=== PATIENT | male | born 1945 | race Caucasian/White ===

== ENCOUNTER → 2019-08-11 | Outpatient (CLI) | payer MEDICARE, BC ==
[~2019-08-11] MED LIST: MULTI VITAMINS1 TAB PO; SIMVASTATIN10 MG PO
== END ==
LOC: COL.LAB 08:00
DX: Z20.828 Contact with and (suspected) exposure to other viral communicable diseases (principal)

== ENCOUNTER 2019-08-17 05:20 | Day surgery (SDC) | payer MEDICARE, BC ==
[~2019-08-17] VITALS: Ht 175.3 cm; Wt 106.9 kg
[~2019-08-17 05:20] MED LIST changes: -MULTI VITAMINS1 TAB PO
[2019-08-17 06:03] VITALS: BP 154/68; PULSE 70; TEMP 98.1
[2019-08-17] MEDS ORDERED: MULTI VITAMINS1 TAB PO (06:10)
--- NOTE | 2019-08-17 06:12 | NUR ---
TO RM AT 0537- CALL LIGHT IN REACH AT BEDSIDE.
[2019-08-17 09:15] VITALS: BP 130/75; PULSE 72; TEMP 96.8
--- NOTE | 2019-08-17 09:15 | NUR ---
TO RM 8 PER CART FROM OR. ALERT ORIENTED X3, TALKING TO STAFF AND . INCISION STICHES CLEAN DRY INTACT COVERED WITH BACITRACIN OINTMENT. RECEIVED WATER, MUFFIN AND COFFEE.
[2019-08-17 09:30] VITALS: BP 111/73; PULSE 65
--- NOTE | 2019-08-17 09:30 | NUR ---
EATING MUFFIN AND TALKING WITH .
[2019-08-17 09:45] VITALS: BP 117/60; PULSE 68
--- NOTE | 2019-08-17 09:45 | NUR ---
AMBULATED TO BATHROOM WITH ASSIST. VOIDED AND AMBULATED BACK TO ROOM.
--- NOTE | 2019-08-17 10:00 | NUR ---
RECEIVED DISCHARGE INSTRUCTIONS AND VERBALIZED UNDERSTANDING WITH AT BEDSIDE. DISCONTINUED IV AND INT- CATHETER INTACT. PATIENT GETTING DRESSED.
--- NOTE | 2019-08-17 10:15 | NUR ---
DISCHARGED PER WC BY NURSING STAFF TO PRIVATE CAR IN CARE OF .
== END 2019-08-17 10:25 | disposition home or self-care (01) ==
LOC: SDCO 05:20
DX: C44.219 Basal cell carcinoma of skin of left ear and external auricular canal (principal); Z11.59 Encounter for screening for other viral diseases
CPT/HCPCS: J2704; J3010; J7120

== ENCOUNTER 2019-12-30 10:33 | Inpatient (IN) | payer MEDICARE, BC ==
[~2019-12-30] VITALS: Ht 175.4 cm; Wt 108.0 kg
[~2019-12-30 10:33] MED LIST changes: +MULTI VITAMINS1 TAB PO
[2020-02-02] VITALS (12 sets, daily range): BP systolic 113–157; BP diastolic 59–77; PULSE 63–108; TEMP 97–98.7
[2020-02-02] MEDS ORDERED: ASPIRIN E.C. 8181 MG PO (04:58)
[2020-02-02] MEDS ORDERED: OMEGA-3 1000 MG1 CAP PO (04:59)
--- NOTE | 2020-02-02 10:01 | NUR ---
PT TO ROOM 328 PER BED WITH REPORT FROM SAEID GODINEZ PACU @ 0900. PT IS A/O X3 LUNGS CTA, BOWEL SOUNDS PRESENT. DRESSING TO LEFT LEG CDI WITH BULKY DRESSING OVER INCISION. SCDS PLACED BILATERALLY. IV TO PUMP. PT DENIES PAIN OR NEEDS AT THIS TIME.
--- NOTE | 2020-02-02 13:26 | NUR ---
Initial visit; Patient thanked Economic Research Analyst for looking in on him, visiting and keeping him in Economic Research Analyst's prayers.
--- NOTE | 2020-02-02 16:20 | NUR ---
Certified Orthotic Fitter met with patient to discuss discharge plan. Patient lives in [place], [place] with his , Nicko (ph#[phone]) and sees Dr. Valle for primary care. Patient obtains his medications from [facility] with no difficulties. Patient has a CPAP and walker at home. Patient reports he is normally independent with ADLS and plans to return home upon discharge. Patient reports his , Nicko and son, Abdirizak are his DPOA-HC however SW did not locate copy in EMR. SW contacted patient's , Nicko and left a message. SW will continue to follow.
--- NOTE | 2020-02-02 16:48 | NUR ---
Senior Risk Analyst spoke with patient's , Nicko to review discharge plan. Nicko advised that she and patient are active people and she has no concerns about patient returning home at this time.
--- NOTE | 2020-02-02 22:00 | NUR ---
Pt. sitting up in bed at this time. Pt. is A&OX3, assessment complete. IV to rt. forearm, IV fluids infusing per orders. Dressing to lt. knee cdi. Pt. reports pain at a 5 on pain scale, gave pain meds per orders. Pt. denies further needs, call light within reach.
[2020-02-03 01:00] VITALS: BP 137/76; PULSE 104; TEMP 98.6
[2020-02-03 04:13] VITALS: BP 136/81; PULSE 94; TEMP 98.9
[2020-02-03 06:38] LABS: HEMOGLOBIN 13.8 g/dl (13.5-18.0)
[2020-02-03] MEDS ORDERED: ASPIRIN 32325 MG/TA1 PO (07:55)
[2020-02-03] MEDS ORDERED: CELEBREX 200MG200 MG PO (07:55)
[2020-02-03] MEDS ORDERED: NORCO 325 MG-7.1 TAB PO (07:55)
[2020-02-03] MEDS ORDERED: ULTRAM 50MG TAB50 MG PO (07:56)
[2020-02-03 09:44] VITALS: BP 127/78; PULSE 100; TEMP 98
--- NOTE | 2020-02-03 10:40 | NUR ---
PATIENT GETTING INTO THE SHOWER WITH OT. DC'D IV. DISCHARGE PENDING LATER THIS AFTERNOON.
[2020-02-03 12:06] VITALS: BP 143/73; PULSE 104; TEMP 98
--- NOTE | 2020-02-03 13:55 | NUR ---
PATIENT DISCHARGING HOME VIA WC TO PERSONAL VEHICLE WHERE IS WAITING. GAVE DISCHARGE INSTRUCTIONS, SCRIPTS SENT TO [facility], GAVE AIRSTRIP DRESSINGS, AND DISCUSSED F/U APTS. ANSWERED ALL QUESTIONS/CONCERNS. PATIENT GIVEN NORCO, TWO TABS BEFORE HOUR LONG DRIVE HOME. PATIENT IS DRESSED AND PACKED. PATIENT ESCORTED OUT.
== END 2020-02-03 14:00 | disposition home or self-care (01) | DRG 470 ==
LOC: JCC 02-02 05:13
PROVIDERS: Physician Assistant; ADMIT Orthopaedic Surgery
PROC: 0SRD0J9 Replacement of Left Knee Joint with Synthetic Substitute, Cemented, Open Approach (ICD-10-PCS; principal; 2020-02-02 07:30)
DX: M17.12 Unilateral primary osteoarthritis, left knee (principal); Z20.828 Contact with and (suspected) exposure to other viral communicable diseases
CPT/HCPCS: A4314; A9284; C1776; J0690; J1100; J1885; J2250; J2405; J2704; J2795; J3010; J7120; J7121

== ENCOUNTER 2021-04-22 23:27 | Observation (INO) | payer MEDICARE, BC ==
[~2021-04-22] VITALS: Ht 175.3 cm; Wt 109.1 kg
[~2021-04-22 23:27] MED LIST changes: +ASPIRIN 32325 MG/TA1 PO; +ASPIRIN E.C. 8181 MG PO; +CELEBREX 200MG200 MG PO; +NORCO 325 MG-7.1 TAB PO; +OMEGA-3 1000 MG1 CAP PO; +ULTRAM 50MG TAB50 MG PO
[2021-04-22 23:48] LABS: COLLECTION METHOD CLEAN CATCH
[2021-04-23] VITALS (12 sets, daily range): BP systolic 114–157; BP diastolic 59–88; PULSE 74–100; TEMP 97.8–99.4
[2021-04-23 00:06] LABS: PH 6 (5-8); SQUAMOUS EPITHELIAL None Seen /hpf (0-10); URINE APPEARANCE Hazy (CLEAR/HAZY); URINE BACTERIA None Seen /hpf (NONE SEEN); URINE BILIRUBIN Negative (NEGATIVE); URINE BLOOD 2+ (NEGATIVE); URINE COLOR Red (YELLOW); URINE GLUCOSE 2+ (NEGATIVE); URINE KETONE 1+ (NEGATIVE); URINE LEUKOCYTE ESTERASE Negative (NEGATIVE); URINE NITRATE Positive (NEGATIVE); URINE PROTEIN(semi-quant) 2+ (NEGATIVE); URINE RBC >50 /hpf (0-2); URINE UROBILINOGEN Negative (NEGATIVE)
[2021-04-23 00:20] LABS: BILIRUBIN,TOTAL 0.5 mg/dL (0.2-1.2); CALCIUM 8.8 mg/dL (8.4-10.2); CREATININE, serum 1.07 mg/dL (0.72-1.25); POTASSIUM 3.9 mmol/L (3.5-4.5); TOTAL PROTEIN 6.6 gm/dL (6.2-8.1)
[2021-04-23 00:27] LABS: INR 1.1 (0.8-3.0); PROTHROMBIN TIME 12.2 SECONDS (9.7-12.8)
[2021-04-23 00:43] LABS: BASO # 0.1 K/mm3 (0.0-0.2); BASO % 1.2 % (0.0-2.0); EOS # 0.2 K/mm3 (0.0-0.7); EOS % 2.6 % (0.0-4.0); GRAN # 5.1 K/mm3 (1.4-6.5); GRAN % 60.8 % (42.2-75.2); HEMATOCRIT 46.5 % (42.0-52.0); HEMOGLOBIN 15.8 g/dl (13.5-18.0); LYMPH # 2.2 K/mm3 (1.2-3.4); LYMPH % 25.7 % (20.0-51.0); MEAN CELL VOLUME 91 fl (80.0-100.0); MEAN CORPUSCULAR HEMOGLOBIN 31 pg (27-31); MEAN CORPUSCULAR HGB CONC 34 g/dl (33.0-37.0); MEAN PLATELET VOLUME 10.7 fl (7.4-10.4); MONO # 0.8 K/mm3 (0.1-0.6); MONO % 9.2 % (1.7-9.3); PLATELET COUNT 202 K/mm3 (130-400); RED BLOOD COUNT 5.11 M/mm3 (4.20-5.60); REDCELL DISTRIBUTION WIDTH-CV 12.7 % (11.5-14.5)
--- NOTE | 2021-04-23 02:25 | NUR ---
PT ARRIVES VIA W/C TO ROOM 324. PT IS ALERT AND ORIENTED X4, SLIGHTLY [place]. HAS INT TO RAC, FLUSHES WELL. GIVEN URINAL WITH INSTRUCTIONS FOR USE.
[2021-04-23] MEDS ORDERED: GLUCOPHAGE500 MG/TAB PO (02:32)
--- NOTE | 2021-04-23 03:00 | NUR ---
IVF CONNECTED TO RAC SITE, INFUSING WITHOUT PROBLEM. DENIES PAIN WITH URINATION. REPORTS FEELING LIKE HE IS EMPTYING HIS BLADDER. DENIES ANY PAIN AT REST. ADMISSION QUESTIONS COMPLETED. PT READY FOR BED. ORIENTED TO BED CONTROLS AND ROOM, VERBALIZES UNDERSTANDING.
--- NOTE | 2021-04-23 05:19 | NUR ---
PT VOIDS PER URINAL 500CC OF YELLOW URINE. PT DENIES PAIN.
--- NOTE | 2021-04-23 09:07 | NUR ---
PT TO SURGERY PER BED WITH JULIETTE AT THIS TIME.
--- NOTE | 2021-04-23 09:40 | NUR ---
PT INDEPENDENT IN ROOM. IN SURGERY AT THIS TIME.
--- NOTE | 2021-04-23 11:03 | NUR ---
PT TO ROOM 324 PER BED WITH REPORT FROM CASSANDRA GODINEZ @9778 . PT IS A/O X4, LUNGS CTA, IV TO RAC, CBI WIHT 450 CR. CLEAR FLUID IN LOPEZ BAT ON ARRIVAL. PT DENIES PAIN. ICE WATER PROVIDED PER PT REQUEST.
--- NOTE | 2021-04-23 13:45 | NUR ---
CECIL met with the pt, present, Nicko [phone]. The pt reports living at home with his and is independent on all ADLS and uses a Bipap. The pt reports Dr. Mcarthur in [facility] as PCP and gets medications from [facility] as well. No other needs stated. DC: Home with .
--- NOTE | 2021-04-23 21:01 | NUR ---
PT AMBULATES IN HALLWAY WITH STAFF, GAIT STEADY. HAS LOPEZ TO BSD WITH PEACH COLORED URINE DRAINING. CBI AT SLOW RATE. LOPEZ CARES PROVIDED AT THIS TIME. PT IS ALERT AND ORIENTED X4. INT TO RAC, FLUSHES WELL. TAKING ADEQUATE ORAL FLUIDS, IVF CAPPED. MEDICATED WITH TYLENOL 650MG PO NOW FOR GENERAL BACK PAIN.
[2021-04-24 03:21] VITALS: BP 124/68; PULSE 80; TEMP 97.9
--- NOTE | 2021-04-24 03:53 | NUR ---
URINE REMAINS PEACH COLORED. CBI CLAMPED. WILL PRIME AND PULL LOPEZ THIS AM.
--- NOTE | 2021-04-24 05:30 | NUR ---
PT URINE REMAINED PEACH AFTER CBI CLAMPED. PRIMED BLADDER WITH 250CC NS, CLAMPED LOPEZ AND REMOVED 10CC OF FLUID FROM BALLOON. REMOVED CATHETER WITHOUT PROBLEM. PT IMMEDIATELY VOIDED 100CC PEACH URINE AFTER LOPEZ REMOVED.
[2021-04-24 07:16] VITALS: BP 137/76; PULSE 79; TEMP 97.5
--- NOTE | 2021-04-24 07:51 | NUR ---
Patient up self-ambulating in room. Denies pain. Voiding without difficulty - urine was flushed in toilet so unable to assess for clarity. Pt. anticipating being discharged today. He denies further needs at this time
--- NOTE | 2021-04-24 11:19 | NUR ---
Patient ready for discharge orders obtained. Patient completed his voiding trial. He is ready to get home. Made him aware to hold his metformin, due to CT scan. Patient has follow up appt scheduled and aware to call with any questions or concerns. Int DC. Activity & diet restrictions discussed. Patient ambulated out with all belogings. His taking him home.
== END 2021-04-24 11:36 | disposition home or self-care (01) ==
LOC: COL.ER 23:27 → SURG 04-23 00:54
PROVIDERS: Emergency Medicine; ADMIT Urology
DX: C67.8 Malignant neoplasm of overlapping sites of bladder (principal); E66.9 Obesity, unspecified; Z87.891 Personal history of nicotine dependence
CPT/HCPCS: G0378; J0690; J0696; J2405; J2704; J3010; J7030; J7120; Q9967

== ENCOUNTER 2021-05-23 07:32 | Day surgery (SDC) | payer MEDICARE, BC ==
[~2021-05-23] VITALS: Ht 175.3 cm; Wt 106.5 kg
[~2021-05-23 07:32] MED LIST changes: +GLUCOPHAGE500 MG/TAB PO
[2021-05-23 08:26] VITALS: BP 131/75; PULSE 72; TEMP 97.7
[2021-05-23] MEDS ORDERED: MOTRIN 600600 MG/TAB PO (10:32)
[2021-05-23] MEDS ORDERED: NORCO 325 MG-51 TAB PO (10:32)
[2021-05-23 11:13] VITALS: BP 124/57; PULSE 75; TEMP 97.3
--- NOTE | 2021-05-23 11:13 | NUR ---
PATIENT TRANSPORTED PER CART FROM OR TO BAY 2 ACCOMPANIED BY OR STAFF. PATIENT IS ALERT AND TALKS WITH STAFF. AT BEDSIDE. MONITORS APPLIED. VSS ON ROOM AIR. IV INFUSING. PATIENT GIVEN COFFEE, WATER AND TOAST
[2021-05-23 11:15] VITALS: BP 124/75; PULSE 68
[2021-05-23 11:30] VITALS: BP 132/69; PULSE 74
--- NOTE | 2021-05-23 11:30 | NUR ---
VSS ON ROOM AIR. PATIENT TOLERATES FOOD AND DRINK WITHOUT PROBLEMS. PATIENT TALKS WITH . PATIENT DENIES DISCOMFORT AND NAUSEA.
--- NOTE | 2021-05-23 11:45 | NUR ---
VSS ON ROOM AIR. PATIENT AND TALKING. PATIENT STATES HE IS READY TO GO HOME.
[2021-05-23 12:00] VITALS: BP 115/66; PULSE 66
--- NOTE | 2021-05-23 12:00 | NUR ---
VSS ON ROOM AIR. PORT SITE REVIEWED. SITE IS SWOLLEN AND SLIGHT HEMATOMA NOTED. LUIS CARLOS LEALRN IN ROOM AND REVIEWED SITE. ENCOURAGED PATIENT AND TO REVIEW SITE DAILY AND CONTACT PHYSICIAN FOR ANY CONCERNS. 1205 IV DC'D WITH CATHETER TIP INTACT. PRESSURE AND BANDAGE APPLIED. 1210 DISCHCARGE INSTRUCTIONS INCLUDING PORT-A CATH PAMPHLET GIVEN VERBAL AND DISCHARGE PACKET PROVIDED. QUESTIONS ANSWERED AND PATIENT AND VOICED UNDERSTANDING. PATIENT CHANGES INTO STREET CLOTHES. 1225 PATIENT DISCHARGED PER WHEEL CHAIR ACCOMPANIED BY CHELA RN TO [facility].
== END 2021-05-23 12:25 | disposition home or self-care (01) ==
LOC: SDCO 07:32
DX: C67.9 Malignant neoplasm of bladder, unspecified (principal); G47.33 Obstructive sleep apnea (adult) (pediatric); E66.9 Obesity, unspecified; Z68.35 Body mass index [BMI] 35.0-35.9, adult
CPT/HCPCS: C1788; J0690; J1644; J2704; J3010; J7120